=== PATIENT | male | born 1940 | race Caucasian/White ===

== ENCOUNTER 2017-08-24 19:50 | Inpatient (IN) | payer OTHER ==
[~2017-08-24] VITALS: Ht 182.9 cm; Wt 128.4 kg
--- NOTE | ~2017-08-24 | EKG ---
[place] [address] [facility] [place] [address] ELECTROCARDIOGRAM REPORT Name: FRANCK POWERS Room #: 423-1 ADM IN M.R.#: [id number] Admission: 08/24/17 Attend Phys: Ángel Mckeon DO Discharge: Date of : 44 Report #: [id number] THIS REPORT FOR: //name// [facility] Test Date: 2017-08-25 Test Time: 07:35:04 Pat Name: FRANCK POWERS Department: Room: [facility] Gender: M Civil Technician: ELLIE : 1940 Requested By: Amado Nichols Order Number: [id number] MD: Shawn Ko Measurements Intervals [place] Rate: 103 P: 32 NJ: 166 QRS: -14 QRSD: 151 T: 134 QT: 392 QTc: 513 Interpretive Statements Sinus tachycardia Left bundle branch block Baseline wander in lead(s) V6 Compared to ECG 01/25/2012 08:23:39 Left bundle-branch block now present Electronically Signed On 08-25-2017 15:04:16 CDT by Shawn Ko [email or web address] <ELECTRONICALLY SIGNED> By: Shawn Ko MD, [facility] 08/25/17 1504 [id number] Shawn Ko MD, [facility] /EPI
[~2017-08-24 19:50] MED LIST: ALTACE10 M1 PO; AMLODIPINE BESYL5 MG PO; ASPIRIN EC81 M1 PO; B-12500 MCG PO; CALCIUM 600 +1 EAC1 PO; FISH OIL 1,001000 M1 PO; GLUCOSAMINE1000 MG PO; GLUCOVANCE 5-51 EACH PO; HYDROCHLOROTHIA25 M1 PO; LEVEMIR SUBQ; LOVASTAT40 PO; TAMSULOSIN HCL0.4 M1 PO; VITAMIN D1000 UNI1 PO; VITAMINC500 PO
[2017-08-24 19:55] VITALS: BP 142/81
[2017-08-24 21:45] LABS: ABSOLUTE NEUTROPHILS 14.6 thou/uL (1.4-8.2); BASOPHILS 0.2 % (0.0-2.0); EOSINOPHILS 0.2 % (0.0-3.0); HEMATOCRIT 45.4 % (42.0-52.0); HEMOGLOBIN 15.2 gm/dL (14.0-18.0); LYMPHOCYTES 8.9 % (24.0-44.0); MCH 32.4 pg (26.0-34.0); MCHC 33.5 g/dL (28.0-37.0); MONOCYTES 5.9 % (1.0-8.0); PLATELET COUNT 327 thou/uL (150-400); POLYS 84.8 % (36.0-66.0); RBC 4.68 mil/uL (4.50-6.00); WBC 17.3 thou/uL (4.0-11.0)
[2017-08-24 21:50] LABS: URINE BILIRUBIN NEGATIVE (Negative); URINE BLOOD NEGATIVE (Negative); URINE CLARITY CLEAR; URINE COLOR YELLOW; URINE GLUCOSE-RANDOM* 3+ (Negative); URINE KETONES TRACE (Negative); URINE LEUKOCYTES NEGATIVE (Negative); URINE NITRITE NEGATIVE (Negative); URINE PROTEIN (DIPSTICK) TRACE (Negative); URINE SPECIFIC GRAVITY 1.025 (1.005-1.035); URINE UROBILINOGEN 0.2 E.U./dl (0.2-1.0)
[2017-08-24 21:55] LABS: CALCIUM 10.8 mg/dL (8.5-10.1); CREATININE 1.3 mg/dL (0.7-1.3)
[2017-08-24 22:00] LABS: ALBUMIN 4.1 g/dL (3.4-5.0); DIRECT BILIRUBIN 0.1 mg/dL (<0.1-0.3); TOTAL BILIRUBIN 0.5 mg/dL (<0.1-1.0); TOTAL PROTEIN 7.8 g/dL (6.4-8.2)
[2017-08-24 22:55] VITALS: BP 142/81
[2017-08-24 23:34] VITALS: BP 163/86
[2017-08-25] VITALS (10 sets, daily range): BP systolic 117–163; BP diastolic 62–91
[2017-08-25 06:05] LABS: HEMATOCRIT 40.7 % (42.0-52.0); HEMOGLOBIN 13.8 gm/dL (14.0-18.0); MCH 32.7 pg (26.0-34.0); MCHC 33.9 g/dL (28.0-37.0); MCV 96.5 fL (80.0-100.0); RBC 4.22 mil/uL (4.50-6.00); RDW 13.2 % (10.5-14.5); WBC 12.2 thou/uL (4.0-11.0)
[2017-08-25 06:21] LABS: ALBUMIN 3.2 g/dL (3.4-5.0); CALCIUM 9.7 mg/dL (8.5-10.1); CREATININE 1.3 mg/dL (0.7-1.3); TOTAL BILIRUBIN 0.6 mg/dL (<0.1-1.0); TOTAL PROTEIN 6.3 g/dL (6.4-8.2)
[2017-08-26 03:20] VITALS: BP 134/73
[2017-08-26 07:51] VITALS: BP 125/70
[2017-08-26 20:30] VITALS: BP 144/62
[2017-08-27 05:00] VITALS: BP 144/65
[2017-08-27 07:45] VITALS: BP 123/67
[2017-08-27 10:15] VITALS: BP 123/67
== END 2017-08-27 10:50 | disposition home or self-care (01) | DRG 351 ==
LOC: ER 19:50 → 4E 22:53 → EROBS 22:53 → 4E 23:44 → ENTRNSPT 08-27 10:33 → EDTRNSPTSTS 08-27 10:36 → 4E 08-27 10:50
PROVIDERS: Nurse Practitioner
PROC: 0YU54JZ Supplement Right Inguinal Region with Synthetic Substitute, Percutaneous Endoscopic Approach (ICD-10-PCS; principal; 2017-08-25)
DX: K40.30 Unilateral inguinal hernia, with obstruction, without gangrene, not specified as recurrent (principal); E44.1 Mild protein-calorie malnutrition; E11.9 Type 2 diabetes mellitus without complications; I10 Essential (primary) hypertension; E66.01 Morbid (severe) obesity due to excess calories; Z85.46 Personal history of malignant neoplasm of prostate; Z79.899 Other long term (current) drug therapy; Z79.82 Long term (current) use of aspirin; Z82.49 Family history of ischemic heart disease and other diseases of the circulatory system; Z68.38 Body mass index [BMI] 38.0-38.9, adult
CPT/HCPCS: 10084; 50010; 50101; 50249; 50411; 50455; 50555; 50558; 50984; 51489; 52265; 53307; 53310; 54022; 54118; 54169; 56462; 56525; 56526; 62110; 62900; 70005

== ENCOUNTER 2018-09-04 05:05 | Inpatient (IN) | payer OTHER ==
[~2018-09-04] VITALS: Ht 182.9 cm; Wt 128.1 kg
[2018-09-04 05:14] VITALS: BP 137/77
[2018-09-04] MEDS ORDERED: TRULICITY0.75 MG/0. SUBQ (05:25)
[2018-09-04 06:01] LABS: ABSOLUTE NEUTROPHILS 14.7 thou/uL (1.4-8.2); BASOPHILS 0.2 % (0.0-2.0); HEMATOCRIT 44.5 % (42.0-52.0); HEMOGLOBIN 14.9 gm/dL (14.0-18.0); LYMPHOCYTES 3.7 % (24.0-44.0); MCH 33.1 pg (26.0-34.0); MCHC 33.5 g/dL (28.0-37.0); MCV 98.8 fL (80.0-100.0); PLATELET COUNT 258 thou/uL (150-400); POLYS 92.1 % (36.0-66.0); RDW 13.6 % (10.5-14.5); WBC 15.9 thou/uL (4.0-11.0)
[2018-09-04 06:14] LABS: CALCIUM 10.6 mg/dL (8.5-10.1); CREATININE 1.1 mg/dL (0.7-1.3); POTASSIUM 4.2 mmol/L (3.5-5.1)
[2018-09-04 06:16] LABS: URINE BILIRUBIN NEGATIVE (Negative); URINE BLOOD NEGATIVE (Negative); URINE CLARITY CLEAR; URINE COLOR YELLOW; URINE GLUCOSE-RANDOM* 3+ (Negative); URINE KETONES NEGATIVE (Negative); URINE LEUKOCYTES-REFLEX NEGATIVE (Negative); URINE NITRITE-REFLEX NEGATIVE (Negative); URINE PROTEIN (DIPSTICK) NEGATIVE (Negative); URINE SPECIFIC GRAVITY >= 1.030 (1.005-1.035); URINE UROBILINOGEN 0.2 E.U./dl (0.2-1.0)
[2018-09-04 06:19] LABS: ALBUMIN 4.2 g/dL (3.4-5.0); TOTAL BILIRUBIN 0.5 mg/dL (<0.1-1.0); TOTAL PROTEIN 7.7 g/dL (6.4-8.2)
[2018-09-04 07:21] VITALS: BP 151/73
[2018-09-04 08:12] VITALS: BP 135/72
[2018-09-04 11:30] VITALS: BP 140/66
--- NOTE | 2018-09-04 15:57 | NUR ---
PT ARRIVED TO UNIT FROM ED IN STABLE CONDITION AT 0836. SANTH[place]H AT BEDSIDE. ADMISSION ASSESSMENT COMPLETED. A&O,X4. DENIES ABD AT THIS TIME, PAIN MEDS GIVEN IN ED. C/O ABD PAIN, N/V AT HOME BEFORE ADMISSION. NGT IN PLACE NARE, LIS, BEJARANO SECRETIONS NOTED. NPO, FSBG Q6H. HX HTN, BP MEDS GIVEN ORDERED. +1 PITTING EDEMA BILATERAL ANKLES. SKIN INTACT. FROM HOME, NO CANE OR WALKER. STANDBY ASSIST, STEADY GAIT, NONSLIP SOCKS IN PLACE. SURGICAL CONSULT IN PLACE. WILL CONTINUE TO MONITOR.
[2018-09-04 19:45] VITALS: BP 125/59
[2018-09-05 03:20] VITALS: BP 135/65
--- NOTE | 2018-09-05 05:31 | NUR ---
ASSUMED CARE AT 1900, ASSESSMENT COMPLETED. PT DENIES SOA. STATES NO NAUSEA, AND THAT HASN'T HAD ANY PAIN SINCE GIVEN MORPHINE IN ER AND NG TUBE PLACED. PULLING CLEAR BROWN LIQUID EARLY IN SHIFT, NOW A DARKER/OPAQUE BROWN. ABD MILDLY DISTENDED, POSITIVE BOWEL SOUNDS R>L, AND PT STATES HE HAS BEEN PASSING GAS. UNABLE TO HAVE BM SO FAR THIS SHIFT. PLAN FOR KUB THIS AM. NO OTHER CONCERNS, WILL CONTINUE TO MONITOR.
[2018-09-05 08:00] VITALS: BP 140/57
--- NOTE | 2018-09-05 14:27 | NUR ---
ASSUMED CARE AT 0710, SHIFT ASSESSMENT DONE, MEDS GIVEN, VSS. DR JAMES SAW THE PATIENT THI AM AND INSTRUCTED THE NURSE TO TAKE OUT NG TUBE. TUBE WAS PULLED OUT, STARTED ON CLEAR LIQUIDS, TOLERATING WELL, ABDOMEN SOFT TO TOUCH, DENIES ANY PAIN, NAUSEA, PASSING GAS. WILL CONTINUE TO ASSESSS AND ASSIST WITH ADLs NEEDED.
--- NOTE | 2018-09-05 15:50 | NUR ---
PT ADMITTED RELATED TO SMALL BOWEL OBSTRUCTION. CM REVIEWED CHART AND SPOKE WITH CARE TEAM. CM MET WITH PT AT BEDSIDE THIS DAY. PT WAS LESS THEN COOPERATIVE IN COMPLETING ASSESSMENT. PT INDICATED THAT HE LIVES IN A HOUSE AND HAD BEEN INDEPENENT WITH GAIT AND ADLS. PT INDICATED HE WILL HAVE NO NEEDS UPON DISCHARGE. PT INDICATED [facility] WANTED HIS PRIVACY. CM LEFT ROOM AND CLOSED DOOR PER PT'S REQUEST. CM TO FOLLOW INDICATED WITH DC PLANNING.
--- NOTE | 2018-09-05 16:27 | NUR ---
PT TO TRANSFER TO [facility] THIS AFTERNOON AND REQUESTS TO NOT BE SEEN BY [facility] AGAIN THIS ADMISSION. HE SAYS HE HAS NO DC NEEDS.
[2018-09-05 16:46] VITALS: BP 143/75
--- NOTE | 2018-09-05 18:03 | NUR ---
PATIENT TRANSFERRED FROM [facility], REPORT FROM SIDNEY/RN. PATIENT ALERT AND ORIENTED X 4. UP AD MIRIAM. PATIENT DENIES PAIN UPON ARRIVAL ON THE UNIT. BLOOD SUGAR MONITORING ORDERED, BS 115. RIGHT AC IV NOT GOOD, IV REMOVED. NOTIFIED DR FRIEND OF IV NOT GOOD, RECEIVED ORDER TO KEEP IV OUT, AND SHE WILL D/C IV FLUIDS, ENCOURAGE FLUID INTAKE. WILL CONTINUE TO MONITOR.
[2018-09-05 20:23] VITALS: BP 143/75
--- NOTE | 2018-09-05 21:18 | NUR ---
CALL OUT TO Rebeca CORONA NP RE: FAMOTIDINE 20 MG IV PUSH AND HYDRALIZNE 10MG IV PUSH. N.O. TO CHANGE BOTH IV PUSH MEDS TO PO SINCE PT NO LONGER HAS IV ACCESS.
--- NOTE | 2018-09-06 04:15 | NUR ---
Assumed pt. care at 1900. Pt. A&Ox4; swallows meds whole w/o difficulty. Remains cont. B&B. Ambulates independently w/ steady gait. Blood sugars WNL. Abd. firm/round; BS+x4. Pt has two small stools on this shift. Pt has no IV access. Remains on Lovenox therapy; no s/s of bleeding noted. Pt. denies pain or discomfort. No s/s of acute distress noted. Pt. asleep w/ call light/desired belonging within reach. PO fluids encouraged. Will continue to monitor.
[2018-09-06 07:27] LABS: HEMATOCRIT 38.4 % (42.0-52.0); MCH 33.4 pg (26.0-34.0); MCHC 33.8 g/dL (28.0-37.0); MCV 98.7 fL (80.0-100.0); RBC 3.89 mil/uL (4.50-6.00); RDW 13.4 % (10.5-14.5); WBC 5.1 thou/uL (4.0-11.0)
[2018-09-06 07:40] LABS: CALCIUM 9.4 mg/dL (8.5-10.1); CREATININE 0.8 mg/dL (0.7-1.3); MAGNESIUM 1.7 mg/dL (1.8-2.4); POTASSIUM 3.6 mmol/L (3.5-5.1)
[2018-09-06 08:42] VITALS: BP 154/75
--- NOTE | 2018-09-06 13:03 | NUR ---
PATIENT DOING WELL TODAY. STATED HAD 3 BOWELL MOVEMENTS DURING THE NIGHT. GOOD BOWELL SOUNDS. PASSING FLATUS. TOLERATED FULL LIQUID BREAKFAST AND SOFT BLAND LUNCH WELL. NO NAUSEA. UP INDEPENDENTLY AND TOLERATING WELL. WANTS TO GO HOME. DR. GUSTAVO HANSEN AT PRESENT AND STATED HE CAN GO HOME FROM HIS STANDPOINT.
--- NOTE | 2018-09-06 13:16 | NUR ---
DISCHARGE NOTE: SW reviewed chart and spoke with nursing and attending physician. Pt was transferred to [facility] from and is progressing towards goals for discharge. Discharge home is anticipated for later today. No SW needs identified at this time, but is available to assist should needs arise.
[2018-09-06] MEDS ORDERED: ONDANSETRON HCL4 M2 PO (15:48)
[2018-09-06 15:55] VITALS: BP 146/78
== END 2018-09-06 16:40 | disposition home or self-care (01) | DRG 918 ==
LOC: ER 05:05 → EROBS 07:34 → 4E 07:34 → SICU 09-05 16:35 → ENTRNSPT 09-06 16:08 → SICU 09-06 16:40
PROVIDERS: Emergency Medicine; Nurse Practitioner Family; ADMIT Internal Medicine
PROC: 0D9670Z Drainage of Stomach with Drainage Device, Via Natural or Artificial Opening (ICD-10-PCS; principal; 2018-09-04)
DX: T62.91XA Toxic effect of unspecified noxious substance eaten as food, accidental (unintentional), initial encounter (principal); K56.609 Unspecified intestinal obstruction, unspecified as to partial versus complete obstruction; E11.9 Type 2 diabetes mellitus without complications; I10 Essential (primary) hypertension; E27.9 Disorder of adrenal gland, unspecified; N28.89 Other specified disorders of kidney and ureter; E86.0 Dehydration; K21.9 Gastro-esophageal reflux disease without esophagitis; E83.52 Hypercalcemia; E78.5 Hyperlipidemia, unspecified; N40.0 Benign prostatic hyperplasia without lower urinary tract symptoms; Z87.442 Personal history of urinary calculi; Z79.4 Long term (current) use of insulin; Z85.46 Personal history of malignant neoplasm of prostate; Z79.82 Long term (current) use of aspirin; Z79.899 Other long term (current) drug therapy; Z82.49 Family history of ischemic heart disease and other diseases of the circulatory system; Y92.89 Other specified places as the place of occurrence of the external cause
CPT/HCPCS: 10084; 15002

== ENCOUNTER → 2019-08-23 | Outpatient (CLI) | payer OTHER ==
[~2019-08-23] MED LIST changes: +ONDANSETRON HCL4 M2 PO; +TRULICITY0.75 MG/0. SUBQ
== END ==
LOC: SJCVC 09:38
DX: R94.31 Abnormal electrocardiogram [ECG] [EKG] (principal); I25.10 Atherosclerotic heart disease of native coronary artery without angina pectoris; I10 Essential (primary) hypertension; E78.5 Hyperlipidemia, unspecified; R93.1 Abnormal findings on diagnostic imaging of heart and coronary circulation; E78.00 Pure hypercholesterolemia, unspecified; E11.9 Type 2 diabetes mellitus without complications; I44.7 Left bundle-branch block, unspecified; Z82.49 Family history of ischemic heart disease and other diseases of the circulatory system; Z79.82 Long term (current) use of aspirin; Z79.899 Other long term (current) drug therapy; Z79.84 Long term (current) use of oral hypoglycemic drugs

== ENCOUNTER → 2019-08-30 | Outpatient (CLI) | payer OTHER | LOC: SJCVCIMAG 07:46 | PROVIDERS: ATTEND Internal Medicine Cardiovascular Disease | DX: I08.1 Rheumatic disorders of both mitral and tricuspid valves (principal); I44.7 Left bundle-branch block, unspecified; I10 Essential (primary) hypertension; R93.1 Abnormal findings on diagnostic imaging of heart and coronary circulation; E11.9 Type 2 diabetes mellitus without complications ==